=== PATIENT | female | born 1955 | race Caucasian/White ===

== ENCOUNTER 2018-06-30 21:04 | Inpatient (IN) ==
--- NOTE | 2018-06-30 21:27 | PROVIDER DOCUMENTATION ---
HPI-Syncope/Dizziness - General Stated Complaint: syncope, ams, weakness Time Seen by Provider: 06/30/18 21:22 Allergies/Adverse Reactions: Patient Allergies Allergy/AdvReac Type Severity Reaction Status Date / Time amoxicillin [Amoxicillin] Allergy Mild RASH Verified 02/12/18 14:02 cefaclor [From Ceclor] Allergy Unknown SWELLING Verified 02/12/18 14:02 AND RASH lorazepam [From Ativan] AdvReac Intermediate "makes me Verified 02/12/18 14:02 crazy" Home Medications: Home Medication List Medication Instructions Recorded Confirmed Last Taken Type Levothyroxine [Synthroid] 50 microgm PO DAILY 05/15/13 02/12/18 02/12/18 History Fludrocortisone [Florinef] 0.5 tab PO Q7D 09/21/14 02/12/18 02/10/18 09:00 History Hydrocortisone 15 mg PO DAILY 09/21/14 02/12/18 02/12/18 History Pregabalin [Lyrica] 75 mg PO DAILY 09/21/14 02/12/18 02/12/18 History Amlodipine [Norvasc] 5 mg PO DAILY 02/24/17 02/12/18 02/12/18 History Insulin Glargine [Lantus] 35 unit SUBQ QHS 02/24/17 02/12/18 02/11/18 History Insulin Glargine [Lantus] 45 unit SUBQ QAM 02/24/17 02/12/18 02/12/18 History Insulin Lispro [Humalog] 25 unit SQ ACL 02/24/17 02/12/18 02/12/18 History Insulin Lispro [Humalog] 30 unit SQ ACB 02/24/17 02/12/18 02/12/18 History Venlafaxine HCl [Venlafaxine HCl 150 mg PO DAILY 02/24/17 02/12/18 02/12/18 History ER] ATORVAstatin [Lipitor] 10 mg PO DAILY 02/03/18 02/12/18 02/12/18 History Trazodone [Desyrel] 25 mg PO QHS tablet 02/08/18 02/12/18 02/11/18 Rx Hydrocortisone [Cortef] 5 mg PO HS 02/12/18 02/12/18 Unknown History Levofloxacin [Levaquin] 1 tab PO DAILY 02/12/18 02/12/18 02/12/18 09:00 History Polyethylene Glycol 3350 [Miralax] 17 gm PO DAILY #30 powd.pack 02/15/18 Unknown Rx - History of Present Illness-Syncope/Dizzy Nature of Presenting Problem: reports that she has had n/v then her mentation is wax and wane of her consciousness, lethargic. family reported that she did have syncope. generalized weakness for the whole day now. pt is unable to give history due to her ams. Review of Systems - Adult - REVIEW OF SYSTEMS - ADULT Constitutional: reports: no symptoms reported Eyes: reports: no symptoms reported Ears, Nose, Mouth & Throat: reports: no symptoms reported Cardiovascular: reports: no symptoms reported Respiratory: reports: no symptoms reported Gastrointestinal: reports: no symptoms reported Genitourinary: reports: no symptoms reported Musculoskeletal: reports: no symptoms reported Integumentary: reports: no symptoms reported Neurological: reports: no symptoms reported Psychiatric: reports: no symptoms reported Endocrine: reports: no symptoms reported Hematologic/Lymphatic: reports: no symptoms reported Allergic/Immunologic: reports: no symptoms reported All Other Systems: Reviewed and Negative Past History - Adult - PAST MEDICAL HISTORY-ADULT Review of Records: reports: Old Records Reviewed, Nursing Assessment Review, Medications Reviewed, Social history reviewed & non-contributory. Major Childhood Illnesses: reports: denies history Cardiovascular: reports: CAD, HTN, hyperlipidemia Respiratory: reports: denies history Gastrointestinal: reports: GERD Obstetrical/Gynecological: reports: denies history Genitourinary: reports: denies history Musculoskeletal: reports: denies history Neurological: reports: denies history, other (peripheral neuropathy// DARIELA/BRIGID/ ) Psychiatric: reports: depression Endocrine/Immune: reports: Diabetes, thyroid disorder, other (dariela syndrome/PANCREAS CYST DRAINAGE ) Other Conditions: reports: denies history - PRIOR SURGERIES/PROCEDURES Surgical/Procedure History: reports: recent surgery (adrenal glad removal), cholecystectomy, hysterectomy, orthopedic (extremity), other (ADRENAL GLAND REMOVAL) - PRIOR HOSPITALIZATIONS Prior Hospitalizations: reports: for other non-related - IMMUNIZATION STATUS Childhood Immunizations: See Nurse Assessment Flu Vaccine: See Nurse Assessment - FAMILY HISTORY Family History: reviewed, not pertinent - SOCIAL HISTORY Smoking: denies Substance Use: none/never Alcohol Use Frequency: never Living Situation: family Physical Exam-General - PHYSICAL EXAM-ADULT Initial Vital Signs Reviewed: Yes - CONSTITUTIONAL General Appearance: alert, no apparent distress, lethargic - EYES Eyes: PERRL/EOMI, other (very dehyrated) - HEAD, EARS, NOSE, MOUTH & THROAT HENMT: normocephalic/atraumatic, normal ENT inspection, TMs normal - NECK Neck: non-tender, full range of motion - RESPIRATORY Respiratory: chest non-tender, lungs clear, normal breath sounds - CARDIOVASCULAR Cardiovascular: normal peripheral pulses, tachycardia - GASTROINTESTINAL (ABDOMEN) Abdominal Exam: normal bowel sounds, non tender, soft - MUSCULOSKELETAL Back Exam: normal inspection, no CVA tenderness Extremity: normal range of motion, non-tender - SKIN Integumentary: normal color, warm/dry - NEUROLOGIC Neurologic: grossly normal - PSYCHIATRIC Psych/Mental Status: disoriented x 3 Progress - PLAN OF CARE/RESULTS Progress/Plan/Lab Results: Vital Signs - 8 hr 06/30/18 21:26 Temperature 99.3 F Pulse Rate 128 H Blood Pressure 118/61 O2 Sat by Pulse Oximetry 94 L Laboratory Results - last 24 hr 06/30/18 06/30/18 06/30/18 21:50 21:50 21:50 WBC 8.92 RBC 7.11 H Hgb 16.5 H Hct 50.0 H MCV 70.3 L MCH 23.2 L MCHC 33.0 RDW Std Deviation 16.2 H Plt Count 276 MPV 11.7 H Immature Gran % (Auto) 0.3 Neut % (Auto) 72.2 Lymph % (Auto) 21.6 [place] % (Auto) 4.7 Eos % (Auto) 1.0 Baso % (Auto) 0.2 Immature Gran # (Auto) 0.03 Neut # (Auto) 6.43 Lymph # (Auto) 1.93 [place] # (Auto) 0.42 Eos # (Auto) 0.09 Baso # (Auto) 0.02 PT INR PTT (Actin FS) Specimen Type Sample Site pH pCO2 pO2 HCO3 Base Excess Steve Test A-a O2 Difference Lactate Blood Gas Modality FiO2 % Sodium 138 Potassium 3.7 Chloride 101 Carbon Dioxide 19 L Anion Gap 18 BUN 25 H Creatinine 1.2 H Estimated GFR/1.73 m2 45 BUN/Creatinine Ratio 21 Glucose 318 H POC Glucose Calculated Osmolality 292 Calcium 8.7 L Total Bilirubin 1.72 H AST 18 ALT 12 Alkaline Phosphatase 108 H Creatine Kinase 71 Troponin T Total Protein 7.0 Albumin 3.5 Globulin 3.5 Albumin/Globulin Ratio 1.0 Plasma Lactate 3.3 H Acetone Level 06/30/18 06/30/18 06/30/18 21:50 21:50 21:50 WBC RBC Hgb Hct MCV MCH MCHC RDW Std Deviation Plt Count MPV Immature Gran % (Auto) Neut % (Auto) Lymph % (Auto) [place] % (Auto) Eos % (Auto) Baso % (Auto) Immature Gran # (Auto) Neut # (Auto) Lymph # (Auto) [place] # (Auto) Eos # (Auto) Baso # (Auto) PT 16.7 H INR 1.25 PTT (Actin FS) 30.0 Specimen Type Sample Site pH pCO2 pO2 HCO3 Base Excess Steve Test A-a O2 Difference Lactate Blood Gas Modality FiO2 % Sodium Potassium Chloride Carbon Dioxide Anion Gap BUN Creatinine Estimated GFR/1.73 m2 BUN/Creatinine Ratio Glucose POC Glucose Calculated Osmolality Calcium Total Bilirubin AST ALT Alkaline Phosphatase Creatine Kinase Troponin T 0.032 Total Protein Albumin Globulin Albumin/Globulin Ratio Plasma Lactate Acetone Level NEGATIVE 06/30/18 06/30/18 21:59 22:47 WBC RBC Hgb Hct MCV MCH MCHC RDW Std Deviation Plt Count MPV Immature Gran % (Auto) Neut % (Auto) Lymph % (Auto) [place] % (Auto) Eos % (Auto) Baso % (Auto) Immature Gran # (Auto) Neut # (Auto) Lymph # (Auto) [place] # (Auto) Eos # (Auto) Baso # (Auto) PT INR PTT (Actin FS) Specimen Type ARTERIAL Sample Site R RADIAL pH 7.43 pCO2 29 L pO2 74 HCO3 21.8 Base Excess -3.9 L Steve Test YES A-a O2 Difference 39.0 Lactate 2.10 Blood Gas Modality ROOM AIR FiO2 % 21.0 Sodium Potassium Chloride Carbon Dioxide Anion Gap BUN Creatinine Estimated GFR/1.73 m2 BUN/Creatinine Ratio Glucose POC Glucose 299 H D Calculated Osmolality Calcium Total Bilirubin AST ALT Alkaline Phosphatase Creatine Kinase Troponin T Total Protein Albumin Globulin Albumin/Globulin Ratio Plasma Lactate Acetone Level Orders Category Date Time Status Cardiac Monitoring DIRECTED Care 06/30/18 21:24 Active Finger Stick Blood Sugar (ED) DIRECTED Care 06/30/18 21:24 Active Oxygen Therapy- ED Nursing DIRECTED Care 06/30/18 21:24 Active Saline Loc NOW Care 06/30/18 21:24 Active CHEST-PORTABLE [RAD] Stat Exams 06/30/18 21:[address] HEAD W/O CONTRAST [CT] Stat Exams 06/30/18 21:26 Taken ABG [RESP] Routine Lab 06/30/18 22:47 Completed CBC WITH ELECTRONIC DIFF [HEME] Stat Lab 06/30/18 21:50 Completed CK PROFILE [SP CHEM] Stat Lab 06/30/18 21:50 Completed COMPREHENSIVE METABOLIC PANEL [CHEM] Stat Lab 06/30/18 21:50 Completed Flu Swab [INFLUENZA SCREEN A/B] Stat Lab 06/30/18 23:08 Uncollected Ketone [ACETONE SERUM] [CHEM] Stat Lab 06/30/18 21:50 Completed LACTATE, PLASMA [CHEM] Stat Lab 06/30/18 21:50 Completed PROTIME WITH INR [COAG] Stat Lab 06/30/18 21:50 Completed PTT [COAG] Stat Lab 06/30/18 21:50 Completed TROPONIN T Stat Lab 06/30/18 21:50 Completed TSH Stat Lab 06/30/18 23:25 Ordered URINALYSIS [URINALYSIS] Stat Lab 06/30/18 21:24 Uncollected 0.9% Sodium Chloride Inj [Ns] 1,000 ml Med 06/30/18 21:28 Discontinued IV 999 mls/hr Doxycycline 100 mg Med 06/30/18 23:09 Discontinued 0.9% Sodium Chloride Inj [Ns] 250 ml IV NOW Levofloxacin 750 mg/D5w [Levaquin 750 mg/D5w] Med 06/30/18 23:10 Active 750 mg in 150 ml IV NOW Altered Mental Status Stat Oth 06/30/18 21:24 Ordered EKG [EKG] Stat Ther 06/30/18 21:24 Ordered Result Diagrams: 06/30/18 21:50 06/30/18 21:50 - CONSULTS/PCP/HOSPITALIST Notification #1 *Consult/PCP/Hospitalist*: dr. Carpio Consult Disposition: Admit Departure - Departure Date of Disposition Decision: 06/30/18 Time of Disposition Decision: 23:25 DIAGNOSIS: Tachycardia, Weakness, Pneumonia, Alteration consciousness, Nausea and vomiting Disposition: ADMITTED INPATIENT 09 Certified Medical Emergency: Emergent Condition: Stable Referrals and Follow-Ups: Michelle Church CRNP [Primary Care Provider] - - Critical Care Note This patient required my direct & personal management of CC.: No Attestation - Physician/ RAYMOND Attestation The physician spent face to face time with patient:: Yes Advanced Practice Provider documentation review:: Supervising physician onsite and consulted in the evaluation and care of this patient. The physician did have a face to face encounter with the patient.
[2018-06-30] MEDS ORDERED: NS 1,000 ML IV ONE (21:28)
[2018-06-30 22:11] LABS: BASO# 0.02 X1000 (0.0-0.2); BASO% 0.2 % (0.0-0.8); EOS# 0.09 X1000 (0.0-0.7); HEMOGLOBIN 16.5 g/dL (12.0-16.0); IMM GRAN# 0.03 X1000 (0.0-0.04); IMM GRAN% 0.3 % (0.0-0.5); LYMPH# 1.93 X1000 (1.2-3.4); LYMPH% 21.6 % (20.5-51.1); MCH 23.2 PG (27-31); MCV 70.3 FL (81-99); MONO# 0.42 X1000 (0.11-0.59); MONO% 4.7 % (1.7-9.3); MPV 11.7 FL (7.4-10.4); NEUT# 6.43 X1000 (1.4-6.5); NEUT% 72.2 % (42.2-75.2); PLT 276 X1000 (130-400); RBC 7.11 XMIL (4.2-5.4); RDW 16.2 % (11.5-14.5); WBC 8.92 X1000 (4.8-10.8)
[2018-06-30 22:18] LABS: INR 1.25; PROTIME 16.7 Seconds (11.0-16.0)
[2018-06-30 22:34] LABS: ALBUMIN 3.5 g/dL (3.5-5.0); CALCIUM 8.7 mg/dL (8.8-10.2); CREATININE 1.2 mg/dL (0.5-0.9); POTASSIUM 3.7 mmol/L (3.5-5.1); TOTAL BILIRUBIN 1.72 mg/dL (0.20-1.00)
[2018-06-30 22:55] LABS: ALLEN TEST YES; BE -3.9 mmoll (-3.0-3.0); BLOOD TYPE ARTERIAL; HCO3-(ACT) 21.8 mmoll (20.0-26.0); PCO2(98.6) 29 mmHg (35-45); PO2(98.6) 74 mmHg (60-100); SAMPLE BLOOD; pH(98.6) 7.43 (7.35-7.45)
[2018-06-30 22:56] LABS: MODALITY ROOM AIR
[2018-06-30] MEDS ORDERED: DOXYCYCLINE 100 MG in NS 250 ML IV ONE (23:09)
[2018-06-30] MEDS ORDERED: LEVAQUIN 750 MG/D5W 750 MG/150 ML IVPB IV ONE (23:10)
[2018-06-30] MEDS ORDERED: ZOFRAN IV PRN (23:52)
[2018-06-30] MEDS ORDERED: TYLENOL PO PRN (23:52)
[2018-06-30] MEDS ORDERED: DUONEB (A & A) INH PRN (23:52)
[2018-07-01 00:18] LABS: URINE SOURCE CLEAN CATCH
[2018-07-01 00:25] LABS: UR EPITHELIAL CELLS <10 /HPF (<10); URINE BACTERIA NEGATIVE /HPF; URINE RBC <10 /HPF (<10); URINE WBC <10 /HPF (<10)
[2018-07-01] MEDS ORDERED: NS 1,000 ML ONE (00:39)
[2018-07-01 00:48] LABS: BILIRUBIN URINE SMALL (NEGATIVE); BLOOD URINE TRACE (NEGATIVE); COLOR YELLOW; GLUCOSE URINE NEGATIVE (NEGATIVE); KETONE URINE NEGATIVE (NEGATIVE); LEUKOCYTES URINE NEGATIVE (NEGATIVE); NITRITE URINE NEGATIVE (NEGATIVE); PROTEIN URINE TRACE mg/dL (NEGATIVE); SP GRAVITY URINE 1.022; TURBIDITY URINE CLEAR (CLEAR); UROBILINOGEN URINE NORMAL (NORMAL)
[2018-07-01] MEDS: NS 1,000 ML IV SCH ×3 (01:00→15:38)
[2018-07-01] MEDS: HEPARIN SUBQ SCH ×2 (01:20→14:10)
--- NOTE | 2018-07-01 01:42 | HISTORY AND PHYSICAL ---
PRIMARY CARE PROVIDER: BEN Peralta. CHIEF COMPLAINT: Lethargy. HISTORY OF PRESENT ILLNESS: Ms Reardon is a 63-year-old female who carries a past medical history of diabetes mellitus, hypertension, hyperlipidemia, adrenal insufficiency, hypothyroidism, diabetic neuropathy, fatty liver. Family reports today she had bouts of nausea, vomiting, and diarrhea. She became lethargic, took several naps today. She had called her to come home from work. He states that she did not want to come to the emergency room initially. Her went outside. Her son came over from next door, found her in the bathroom lying face down. Unknown if there was any syncope at that time. However, while he was with her, she never lost any consciousness. She was awake and oriented, but still somewhat lethargic. She currently knows her name and date of . She know she is in the hospital, unsure of what city. She could not name the year correctly, she thought it was 2001, and she falls asleep easy during the assessment. There is a questionable pneumonia seen on her x-ray. She was already given a dose of IV Levaquin. We will check a chest CT. She appears to be extremely dehydrated, she was given a bolus of fluid. We will continue with IV hydration and check a chest CT, and admit her in observation status for further evaluation and treatment. REVIEW OF SYSTEMS: A 14-point review of systems complete and negative, except for those mentioned in HPI. Patient has been around a grandson who has had the stomach virus this past week. PAST MEDICAL HISTORY: 1. Diabetes mellitus. 2. Hypertension. 3. Hyperlipidemia. 4. Hypothyroidism. 5. Adrenal insufficiency. 6. Diabetic neuropathy. 7. Fatty liver. PAST SURGICAL HISTORY: 1. Adrenalectomy. 2. Cholecystectomy. 3. Hysterectomy. 4. Right rotator cuff repair. 5. Left cataract surgery. SOCIAL HISTORY: Lives with her . No alcohol, tobacco, or illicit drug use. FAMILY HISTORY: Mother with diabetes. Father from an [place], also had diabetes. ALLERGIES: Penicillin, Ativan, latex, and Ceclor. HOME MEDICATIONS: Have not been verified. However, back in February 2018 she was discharged on MiraLAX, Synthroid, Florinef, hydrocortisone, Lyrica, Lantus q.a.m. and q.p.m., Humalog before breakfast and before lunch, Venlafaxine, Lipitor, Desyrel, Cortef. However, these have not been verified. PHYSICAL EXAMINATION: VITAL SIGNS: Temperature is 99.3 degrees, heart rate 128, respirations 18, blood pressure 118/61, O2 is 94% on room air. GENERAL: Ms. Reardon is a 63-year-old female who is lying on the stretcher. She is lethargic, falls asleep easy, but in no acute distress. HEENT: Atraumatic, normocephalic. PERRL. Mucous membranes are dry. NECK: Supple. Trachea midline. CARDIOVASCULAR: Regular rate and rhythm. No murmurs, gallops, or rubs noted. PULMONARY: Clear to auscultation bilaterally. ABDOMEN: Soft, nontender, nondistended. Positive bowel sounds 4 quadrants. EXTREMITIES: Bilateral pedal pulses are palpable. No clubbing, no cyanosis, no edema. NEUROLOGIC: The patient is somewhat lethargic. She knows her name and date of . She could not name the year correctly, she thought it was 2001. She knows she is in the hospital but unsure what the name is or what the city is. SKIN: Appears to be dry and intact. DIAGNOSTICS: Pending head and chest CT ASSESSMENT AND PLAN: 1. Questionable pneumonia seen on chest x-ray. She was treated with IV Levaquin. We will continue and follow up with a chest CT. Patient does have a history of pneumonia. We will continue with bronchodilators and aggressive pulmonary toilet. 2. Clinical dehydration. We will continue with IV fluids. Recheck her labs in the a.m. 3. Probable gastroenteritis. Patient has been around her grandson who has had vomiting and diarrhea over the past week. She does keep him in the afternoons. We will continue to treat symptomatically. 4. Diabetes mellitus. We will continue with her home regimen and place her on pattern sugars and sliding scale. She does have a history of hypoglycemia. We will keep close checks on her blood sugars. 5. Questionable syncopal episode, lethargy. Awaiting head CT. Continue to evaluate her mental status. Consult Neurology if appropriate. 6. Hypothyroidism. Will continue home Synthroid when verified. 7. Hyperlipidemia. Will continue statin. 8. 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 Continue her hydrocortisone. 9. Diabetic neuropathy. Will hold her Lyrica for now given her lethargy. 10. Deep venous thrombosis prophylaxis with heparin. 11. Further recommendations to follow physician evaluation, laboratory, and diagnostic data. Dictated by BEN Weber for Lobo Carpio MD Agree with the above. The following is my own face to face assessment. Patient with nausea, vomiting, diarrhea leading to dehydration. favor viral gastroenteritis given rapid onset and sick contact. possible LLL infiltrate on cxr but favor atelectasis given normal lung exam and lack of respiratory symptoms. will give a dose of abx and discontinue if CT chest negative. MTDD
[2018-07-01 06:44] LABS: BASO# 0.03 X1000 (0.0-0.2); BASO% 0.3 % (0.0-0.8); EOS# 0.04 X1000 (0.0-0.7); EOS% 0.4 % (0.0-10.0); HEMATOCRIT 48.1 % (37.0-47.0); HEMOGLOBIN 15.7 g/dL (12.0-16.0); IMM GRAN# 0.05 X1000 (0.0-0.04); IMM GRAN% 0.5 % (0.0-0.5); LYMPH# 3.39 X1000 (1.2-3.4); LYMPH% 32.3 % (20.5-51.1); MCH 23.2 PG (27-31); MCHC 32.6 g/dL (33-37); MCV 71.2 FL (81-99); MONO# 0.76 X1000 (0.11-0.59); MONO% 7.2 % (1.7-9.3); MPV 11.5 FL (7.4-10.4); NEUT# 6.24 X1000 (1.4-6.5); NEUT% 59.3 % (42.2-75.2); PLT 253 X1000 (130-400); RBC 6.76 XMIL (4.2-5.4); RDW 16.7 % (11.5-14.5); WBC 10.51 X1000 (4.8-10.8)
[2018-07-01] MEDS: HUMALOG SUBQ SCH ×4 (07:00→20:25)
[2018-07-01] MEDS ORDERED: HUMALOG SUBQ SCH (07:00)
[2018-07-01 07:08] LABS: ALB/GLOB RATIO 0.8; ALBUMIN 3.1 g/dL (3.5-5.0); CALCIUM 7.7 mg/dL (8.8-10.2); CREATININE 1.3 mg/dL (0.5-0.9); POTASSIUM 3.3 mmol/L (3.5-5.1); TOTAL BILIRUBIN 1.8 mg/dL (0.20-1.00); TOTAL PROTEIN 6.8 g/dL (6.3-8.3)
--- NOTE | 2018-07-01 07:12 | Diag Imaging Result Doc PS360 ---
CHEST-PORTABLE - 07/01/2018 INDICATION: Pneumonia COMPARISON: 06/30/2018 FINDINGS: The lungs are normally expanded and clear. Heart size and mediastinal contours are normal. No pneumothorax or pleural effusion. IMPRESSION: Negative exam. Electronically signed by Tre Fox 07/01/2018 7:10 AM
--- NOTE | 2018-07-01 07:13 | Diag Imaging Result Doc PS360 ---
CHEST-PORTABLE - 06/30/2018 INDICATION: ams COMPARISON: 02/12/2018 FINDINGS: The lungs are normally expanded and clear. Heart size and mediastinal contours are normal. No pneumothorax or pleural effusion. IMPRESSION: Negative exam. Electronically signed by Tre Fox 07/01/2018 7:10 AM
[2018-07-01 07:17] LABS: LYMPHS 30 % (21-51); SEGS 58 % (42-75)
--- NOTE | 2018-07-01 07:21 | Diag Imaging Result Doc PS360 ---
EXAM: CT HEAD W/O CONTRAST INDICATION: Head injury TECHNIQUE: This exam was performed using automated exposure control, adjustment of mA or kV according to patient size, and/or use of iterative reconstruction technique. COMPARISON: None. FINDINGS: There is no definite acute infarct given the limited sensitivity of CT versus MRI. There is no discrete intracranial mass, mass effect, or intracranial hemorrhage. There is extensive sinus mucosal disease involving the sphenoid sinuses with subtotal opacification. There is milder sinus mucosal disease involving the left maxillary sinus and the ethmoid sinuses. Surrounding soft tissues and bony structures are essentially unremarkable, otherwise. IMPRESSION: No evidence of acute intracranial pathology. Electronically signed by Keith Valdez 07/01/2018 7:18 AM
--- NOTE | 2018-07-01 07:45 | Diag Imaging Result Doc PS360 ---
EXAM: CT THORAX W/O CONTRAST INDICATION: ? PNA TECHNIQUE: This exam was performed using automated exposure control, adjustment of mA or kV according to patient size, and/or use of iterative reconstruction technique. COMPARISON: None. FINDINGS: There are a few calcified granulomata in both lungs. There are several other tiny noncalcified subcentimeter nodules, the largest of which measure between 4 mm and 5 mm. Statistically, these very likely represent noncalcified granulomata. Otherwise, the lungs are clear. There are no airspace consolidations. There is no pleural fluid collection and no pneumothorax. There are multiple calcified mediastinal and hilar lymph nodes indicating prior granulomatous disease. There is no cardiomegaly. There is patchy coronary artery atherosclerotic calcification. IMPRESSION: 1.Evidence of prior granulomatous disease and several tiny noncalcified nodules bilaterally that are technically nonspecific but statistically very likely represent noncalcified granulomata. 2.No evidence of acute pathology. Electronically signed by Keith Valdez 07/01/2018 7:42 AM
[2018-07-01] MEDS: LANTUS INSULIN SUBQ SCH ×2 (09:00→20:27)
[2018-07-01] MEDS ORDERED: VANCOMYCIN IV PER PHARMACY MISC SCH (09:15)
[2018-07-01] MEDS: ZOSYN 3.375 GM in NS 50 ML IV SCH ×3 (10:30→20:34)
[2018-07-01] MEDS: SYNTHROID PO SCH (10:30)
[2018-07-01] MEDS ORDERED: LEVOPHED 8 MG in D5 1/2 NS 250 ML IV SCH (11:30)
[2018-07-01] MEDS ORDERED: VANCOMYCIN 1,350 MG in NS 250 ML IV ONE (13:00)
--- NOTE | 2018-07-01 13:04 | Diag Imaging Result Doc PS360 ---
EXAM: CT ABDOMEN/PELVIS W/O CONTRAST INDICATION: severe diarrhea TECHNIQUE: This exam was performed using automated exposure control, adjustment of mA or kV according to patient size, and/or use of iterative reconstruction technique. COMPARISON: 02/14/2018 FINDINGS: There is a calcified granuloma in the right lower lobe. There are a couple of tiny noncalcified nodules in the left lower lobe that are stable measuring around 4 mm, statistically very likely noncalcified granulomata. There are calcified granulomata throughout the spleen. There has been a prior cholecystectomy. 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 There is a 1.4 cm low dense focus at the tail the pancreas that is stable as far back as 2014 and probably represents a small pseudocyst as there was pancreatitis previously in this region. 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 The kidneys are essentially unremarkable, otherwise. The urinary bladder is unremarkable. There has been a prior hysterectomy. There is liquid stool throughout the colon and in the rectum indicating a diarrheal illness. There is no evidence of bowel wall thickening. No pericolonic inflammatory changes are appreciated. There is no evidence of bowel obstruction. There is a tiny hiatal hernia. The remainder of the GI tract is essentially unremarkable. No free abdominal gas or free fluid is identified. IMPRESSION: 1.Liquid stool throughout the colon and rectum indicating a diarrheal illness. 2.Other incidental/nonacute findings detailed above that are essentially stable as compared to the previous study. Electronically signed by Keith Valdez 07/01/2018 1:02 PM
[2018-07-01] MEDS: CORTEF PO SCH ×2 (13:43→20:23)
[2018-07-01] MEDS: SOLU-MEDROL IV SCH (17:04)
--- NOTE | 2018-07-01 17:31 | PROGRESS NOTE ---
DATE: 07/01/2018 SUBJECTIVE: This is a 63-year-old female who came in with past medical history of diabetes mellitus, hypertension, hyperlipidemia, adrenal insufficiency, hypothyroidism, diabetic neuropathy, fatty liver. Family reports that she had bouts of nausea and vomiting, and apparently the whole family has had a virus. She became lethargic and had nausea through much of the day yesterday, called her to come home from work and then states that she did not want to continue to go to the emergency room. Her went outside, came over from the next door, found her in the bathroom when he got back laying face down, unknown if there was any syncope. She was finally awake and lethargic, but seemed to be oriented. He brought her to the hospital. The thought was that she had nausea and probably had a vasovagal syncopal event. There was questionable pneumonia on x-ray. Given a dose of IV Levaquin. She was extremely dehydrated, given a bolus of fluid. PAST MEDICAL HISTORY: 1. Diabetes mellitus type 2. 2. Hypertension. 3. Hyperlipidemia. 4. Hypothyroidism. 5. Adrenal insufficiency. 6. Diabetic neuropathy. 7. Fatty liver or steatohepatitis. PAST SURGICAL HISTORY: 1. Adrenalectomy. 2. Cholecystectomy. 3. Hysterectomy. 4. Right rotator cuff repair. 5. Left cataract surgery. DIAGNOSTIC DATA: Questionable pneumonia seen on x-ray, treated with IV Levaquin. CT of the chest showed evidence of prior granulomatous disease, several tiny noncalcified nodules bilaterally, technically nonspecific, could represent noncalcific granulomata. No evidence of acute pathology. Chest x-ray negative exam, no infiltrate. Abdominal and pelvic CT: Liquid stool throughout the colon and rectum indicating diarrheal illness. Other incidental nonacute findings detailed but no sign of colitis. There is calcified granuloma in the right lower lobe, a couple of tiny noncalcific nodules in the left lower lobe measuring about 4 mm, statistically most likely noncalcific granulomata. Some calcified granulomata throughout the spleen. There has been a prior cholecystectomy at any rate. REVIEW OF LABORATORY DATA: White count was 8920, hematocrit 50, platelet count 276,000. Chemistries unremarkable. Creatinine is 1.3, potassium 3.3. Blood sugars 229, 186, 187, 191. ASSESSMENT AND PLAN: 1. Questionable pneumonia, not confirmed on CT scan. The patient does have a history of pneumonia in the past. Continue bronchodilators. 2. Clinical dehydration. This is improved. Blood pressures came up. 3. Probable gastroenteritis. Has been around family. Almost all family with diarrhea and symptomatic viral gastroenteritis. 4. Diabetes mellitus type 2. Continue present regimen with sliding scale. 5. Questionable syncopal episode. I suspect this is vasovagal. 6. Hypothyroidism. 7. Hyperlipidemia. 8. 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 Continue hydrocortisone. 9. Diabetic neuropathy. REVIEW OF ORDERS: I do not see any change. She is on hydrocortisone. She takes Cortef 5 mg at bedtime and Cortef 15 mg in the morning. She is on insulin glargine 35 units subcutaneous at bedtime. She is on Zosyn 3.375 g IV q.6, doxycycline 100 mg, was given 1 dose, and levothyroxine 50 mcg daily. Levaquin she was given 1 dose at 750 mg, and we are giving her normal saline 125 mL an hour. cc: Steve Leiva MD
[2018-07-01] MEDS ORDERED: LEVAQUIN 750 MG in NS 150 ML IV SCH (23:45)
[2018-07-02] MEDS: NS 1,000 ML IV SCH ×4 (00:10→23:03)
[2018-07-02] MEDS: HEPARIN SUBQ SCH ×3 (00:10→23:03)
[2018-07-02] MEDS: SOLU-MEDROL IV SCH ×2 (00:10→08:41)
[2018-07-02] MEDS ORDERED: HUMULIN R IV ONE (01:24)
[2018-07-02] MEDS: ZOSYN 3.375 GM in NS 50 ML IV SCH ×4 (03:42→20:47)
[2018-07-02] MEDS ORDERED: LEVOPHED IV SCH (04:00)
[2018-07-02] MEDS ORDERED: NS IV SCH (04:00)
[2018-07-02] MEDS: HUMALOG SUBQ SCH ×2 (06:16→11:03)
[2018-07-02] MEDS: CORTEF PO SCH ×2 (08:42→20:46)
[2018-07-02] MEDS: LANTUS INSULIN SUBQ SCH ×2 (08:42→20:47)
[2018-07-02] MEDS: SYNTHROID PO SCH (09:00)
--- NOTE | 2018-07-02 09:46 | PROGRESS NOTE ---
DATE: 07/02/2018 SUBJECTIVE: Ms. Reardon is doing better. Her bowels are starting to move. She did have a little hypotension last night, but seemed to be more positional. OBJECTIVE: Vital signs: She remains afebrile, temperature 97.3 degrees, pulse 99, respirations 20, blood pressure 80/52 and running from 80 to 102 over 45 to 57. HEENT: Pupils are equal and round. Lungs: Clear in all lung cano. Cardiovascular: Regular rhythm and rate without murmur or S3. Abdomen: Soft. Skin: Warm and dry. Genitourinary: Urine output 1500 mL. ASSESSMENT AND PLAN: 1. Questionable pneumonia, not confirmed on CT scan. Continue present antibiotics. Continue bronchodilators. 2. Clinical dehydration from diarrhea. 3. Gastroenteritis, suspect viral gastroenteritis as most of the family, particularly her grandson, had a bad case of it. Stool is started to form. She is eating. 4. Diabetes mellitus type 2. Continue to follow sugars, sliding scale. 5. Questionable syncopal episode. Suspect it was vasovagal related to her nausea. 6. Hypothyroidism. 7. Hyperlipidemia. 8. Adrenal insufficiency secondary to [place]'s disease. She has had adrenalectomy, so she is on stress steroids at this time. 9. Diabetic neuropathy. REVIEW OF ORDERS: She is on insulin glargine 35 units subcutaneous at bedtime, getting low-dose heparin at 5000 units subcutaneous q.12h, Cortef 5 mg at bedtime and then she gets 15 mg in the morning, insulin glargine 45 units subcutaneous daily, Synthroid 50 mcg daily, and then methylprednisone 60 mg IV q.8. She is on vancomycin, she got 1 g q.36 hours, and Zosyn 3.375 g q.6. We have obtained cultures. Stool culture on the , no white blood cells seen, no ova and parasites. Clostridium was negative and her influenza screen was negative for A and B. cc: Steve Leiva MD
[2018-07-02] MEDS ORDERED: HUMALOG SUBQ SCH ×2 (17:00)
[2018-07-03] MEDS ORDERED: VANCOMYCIN 1 GM/NS 1 GM/250 ML IVPB IV SCH (01:00)
[2018-07-03] MEDS: ZOSYN 3.375 GM in NS 50 ML IV SCH ×2 (03:50→08:17)
--- NOTE | 2018-07-03 07:46 | DISCHARGE SUMMARY ---
ADMISSION DATE: 06/30/2018 DISCHARGE DATE: HISTORY OF PRESENT ILLNESS: Ms. Reardon says she feels quite a bit better and would like to go home. This morning her bowels, she says the diarrhea has let up. She is not nauseated. No abdominal discomfort. Blood pressure seems to be doing well. This is a 63-year-old female with past medical history of diabetes mellitus type 2, hypertension, hyperlipidemia, adrenal insufficiency, hypothyroidism, diabetic neuropathy, fatty liver. The family reports that she had bouts of nausea and vomiting and diarrhea, became lethargic and took several naps during the day and called her to come home from work. States that she did not want to come to the emergency room. went outside, came over next door, and came back and he found her in the bathroom lying face down. Unknown if there was true syncope. While he was with her she never lost consciousness. When she arrived to the emergency room she was awake, and oriented. She knew the date of , knew she was in the hospital. Had quite a bit of diarrhea and nausea. Blood pressure was labile. Of note she has adrenal insufficiency. She is status post adrenalectomy for I believe treatment for [place]'s disease. PAST MEDICAL HISTORY: Reviewed again. 1. Diabetes mellitus type 2. 2. Hypertension. 3. Hyperlipidemia. 4. Hypothyroidism. 5. Adrenal insufficiency. 6. Diabetic neuropathy. 7. Fatty liver. PAST SURGICAL HISTORY: 1. Adrenalectomy. 2. Status post cholecystectomy. 3. Hysterectomy. 4. Right rotator cuff repair. 5. Left cataract surgery. ADMISSION DIAGNOSIS: Questionable pneumonia on chest x-ray, treated with IV Levaquin and CT chest done on 06/30/2018 was there is evidence of prior granulomatous disease, several tiny noncalcified nodules bilaterally, but did not see any true infiltrate, did not believe she had any true pneumonia. Chest x-ray repeated on 07/01/2018 negative exam. Abdominal and pelvic CT done on 07/01/2018: There was liquid stool throughout the colon and rectum indicating diarrheal illness. There was incidental nonacute findings but no sign of acute pathology. Blood pressures improved. I did put her on cortisol IV. Watched her sugars. Blood pressures range between 90 and 126 over 54 to 69 we continued her on a sliding scale. I suspect she had a viral gastroenteritis and complicated by adrenal insufficiency, and so I did not have stress dose steroids. She is really requesting to go home today so I will see if I can get her ready for that. I do not think she needs any antibiotics. DISCHARGE MEDICATIONS: She will be on her Cortef. I think she takes 15 mg in the morning, 5 at night, Lantus insulin 35 units subcutaneous at bedtime and 45 units subcutaneous in the morning. She has 30 units subcutaneous with breakfast, 25 units with lunch, 12 units with supper, Synthroid 50 mcg daily. Note that her micro stool studies were negative for Clostridium difficile and influenza swab was negative and blood cultures from 06/30/2018 with no growth after 48 hours. Stool did not show any significant white blood cells or ova and parasites. We will see if we can let her go home today. cc: Steve Leiva MD
[2018-07-03] MEDS ORDERED: HUMALOG SUBQ SCH ×2 (08:00→12:00)
[2018-07-03] MEDS: CORTEF PO SCH (08:16)
[2018-07-03] MEDS: SYNTHROID PO SCH (08:16)
[2018-07-03] MEDS: LANTUS INSULIN SUBQ SCH (08:17)
[2018-07-03 08:56] VITALS: BP 137/78
[2018-07-03] MEDS: NS 1,000 ML IV SCH (08:58)
== END 2018-07-03 09:48 | disposition home or self-care (01) | DRG 641 ==
LOC: SUPCPDRO → ED 21:04 → EDIPHOLD 21:04 → OBSVTOIN 23:55 → SUATTDRO 23:55 → ICU 07-01 12:01
PROVIDERS: ATTEND Emergency Medicine
CPT/HCPCS: 70450; 71010; 71045; 71250; 74176; 80053; 81001; 82009; 82550; 82805; 82948; 83605; 84443; 84484; 85025; 85610; 85730; 87040; 87177; 87205; 87275; 87276; 87324; 87449; 87804; 88313; 89055; 93005; 94761; 94799; 96361; 96365; 96367; 96372; 99285; A9270; J1644; J1815; J1956; J2543; J2930; J3370; J7030; J7050; XXXXX